=== PATIENT | male | born 1945 | race Caucasian/White ===

== ENCOUNTER 2016-11-29 21:10 | Emergency (ER) | payer MEDICARE ==
[~2016-11-29] VITALS: Ht 172.7 cm; Wt 65.4 kg
[2016-11-29] MEDS ORDERED: ASCO100T5 PO (22:05)
[2016-11-29] MEDS ORDERED: CHOL400C11 PO (22:05)
[2016-11-29] MEDS ORDERED: UBID100C41 PO (22:06)
[2016-11-29 22:08] VITALS: BP 157/73
[2016-11-29] MEDS ORDERED: PINK LADY ENEMA 1,000 ML PR ONE (22:30)
[2016-11-30] MEDS ORDERED: LORazepam 1MG TABLET ONE (00:31)
[2016-11-30] MEDS ORDERED: LORazepam 1MG TABLET PO ONE (00:35)
== END 2016-11-30 00:39 | disposition home or self-care (01) ==
LOC: ED 21:38
DX: K59.00 Constipation, unspecified (principal)
CPT/HCPCS: 74022; 99284